=== PATIENT | male | born 1970 | race African-American/Black ===

== ENCOUNTER 2020-05-04 11:42 | Inpatient (IN) | payer MEDICAID, SELFPAY ==
[~2020-05-04] VITALS: Ht 167.6 cm; Wt 55.3 kg
[2020-05-04 11:50] VITALS: BP 212/123
[2020-05-04] MEDS ORDERED: ONDANSETRON 4 MG/2 ML VIAL IVP ONE (12:35)
[2020-05-04] MEDS ORDERED: LABETALOL 100 MG/20 ML VIAL IVP ONE (12:35)
[2020-05-04] MEDS ORDERED: fentaNYL citrate 0.05 MG/ML VIAL IVP ONE (12:35)
[2020-05-04 13:19] LABS: HEMOGLOBIN 13.6 g/dL (12.0-18.0); RED BLOOD CELL COUNT(AUTO) 4.85 MIL/uL (4.20-6.10); WHITE BLOOD COUNT (AUTO) 8.4 K/uL (4.8-10.8)
[2020-05-04 13:20] LABS: BASOPHILS % (AUTO) 0.6 % (0.0-2.0); EOSINOPHILS % (AUTO) 0.3 % (0.0-4.0); HEMATOCRIT 41.9 % (36-52); LYMPHOCYTES # (AUTO) 0.5 K/uL (2.0-11.5); LYMPHOCYTES % (AUTO) 3.2 % (20.5-51.1); MEAN CORPUSCULAR HEMOGLOBIN 28 pg (27-31); MEAN CORPUSCULAR HGB CONC 32 g/dL (33-37); MEAN CORPUSCULAR VOLUME 86.5 fL (80-94); MONOCYTES # (AUTO) 0.1 K/uL (0.8-1.0); MONOCYTES % (AUTO) 1.6 % (1.7-9.3); NEUTROPHILS # (AUTO) 7.6 K/uL (1.8-7.7); NEUTROPHILS % (AUTO) 91.3 % (42.2-75.2); PLATELET COUNT (AUTO) 228 K/uL (140-450); RED CELL DISTRIBUTION WIDTH 14.7 % (11.6-13.7)
[2020-05-04 13:21] LABS: BASOPHILS # (AUTO) 0.1 K/uL (0.00-0.22)
[2020-05-04 13:39] LABS: ANION GAP 15.8 (8-16); CARBON DIOXIDE 29.4 mmol/L (21-32); POTASSIUM 3.2 mmol/L (3.5-5.1); PROTHROMBIN TIME 10.1 secs (10.8-13.4); TOTAL BILIRUBIN 0.5 mg/dL (0.0-1.0)
[2020-05-04 15:50] LABS: CREATININE 7.4 mg/dL (0.6-1.3)
[2020-05-04 15:52] LABS: ALBUMIN 2.9 g/dL (3.4-5.0)
[2020-05-04] MEDS ORDERED: HYDROcodone/APAP 5/325 MG 1 TAB TAB PO ONE (16:25)
[2020-05-04] MEDS ORDERED: ASPIRIN 81 MG TAB.CHEW PO SCH (16:45)
[2020-05-04] MEDS ORDERED: ASPIRIN 81 MG TAB.CHEW PO ONE (16:45)
[2020-05-04] MEDS ORDERED: GABA400C PO (22:04)
[2020-05-04 22:50] VITALS: BP 174/90
[2020-05-05] VITALS: BP 152/94
[2020-05-05] MEDS ORDERED: DEXTROSE 50% 50 ML SYR IVP PRN (00:05)
[2020-05-05] MEDS ORDERED: ACETAMINOPHEN 325 MG TAB PO PRN (00:05)
[2020-05-05] MEDS ORDERED: POTASSIUM CHLORIDE 10 MEQ TABER PO PRN (00:05)
[2020-05-05] MEDS ORDERED: NACL 0.9% 1,000 ML IV SCH (00:05)
[2020-05-05] MEDS ORDERED: DOCUSATE SODIUM 100 MG GELCAP PO PRN (00:05)
[2020-05-05] MEDS ORDERED: NITROGLYCERIN 0.4 MG TAB SL PRN (00:05)
[2020-05-05] MEDS: ONDANSETRON 4 MG/2 ML VIAL IM/IVP PRN ×2 (00:40→16:32)
[2020-05-05 01:04] LABS: CHOL/HDL RATIO 7.7 (1-4.5); FREE T4 (FREE THYROXINE) 1.27 ng/dL (0.76-1.46); MAGNESIUM 2.4 mg/dL (1.8-2.4); PHOSPHORUS 6.7 mg/dL (2.5-4.9); THYROID STIMULATING HORMONE 1.36 uIU/mL (0.34-3.74)
[2020-05-05] MEDS ORDERED: MORPHINE SULFATE 4 MG/ML SYR IVP ONE (01:10)
[2020-05-05] MEDS ORDERED: MORPHINE SULFATE 4 MG/ML SYR ONE (02:39)
[2020-05-05 04:00] VITALS: BP 191/104
[2020-05-05] MEDS: CLONIDINE HYDROCHLORIDE 0.1 MG TAB PO PRN ×2 (04:47→16:39)
[2020-05-05] MEDS: BLOOD GLUCOSE MONITORING 1 DEV DEV FS SCH ×4 (06:25→20:06)
[2020-05-05] MEDS: INSULIN LISPRO SLIDING SCALE 100 UNITS/ML VIAL SUBQ PRN (06:27)
[2020-05-05 08:00] VITALS: BP 160/92
[2020-05-05] MEDS: HYDROcodone/APAP 7.5/325 MG 1 TAB PO PRN ×2 (10:49→16:32)
[2020-05-05 12:00] VITALS: BP 132/86
[2020-05-05 16:00] VITALS: BP 165/95
[2020-05-06 04:00] VITALS: BP 190/103
[2020-05-06] MEDS: CLONIDINE HYDROCHLORIDE 0.1 MG TAB PO PRN (05:51)
[2020-05-06] MEDS: ONDANSETRON 4 MG/2 ML VIAL IM/IVP PRN (06:00)
[2020-05-06] MEDS: BLOOD GLUCOSE MONITORING 1 DEV DEV FS SCH ×4 (06:06→20:38)
[2020-05-06 07:04] LABS: BASOPHILS # (AUTO) 0.1 K/uL (0.00-0.22); EOSINOPHILS % (AUTO) 0.2 % (0.0-4.0); HEMATOCRIT 39.2 % (36-52); HEMOGLOBIN 12.7 g/dL (12.0-18.0); LYMPHOCYTES # (AUTO) 1.4 K/uL (2.0-11.5); MEAN CORPUSCULAR HEMOGLOBIN 28 pg (27-31); MEAN CORPUSCULAR HGB CONC 32 g/dL (33-37); MEAN CORPUSCULAR VOLUME 86.8 fL (80-94); MONOCYTES # (AUTO) 0.4 K/uL (0.8-1.0); MONOCYTES % (AUTO) 7.2 % (1.7-9.3); NEUTROPHILS # (AUTO) 4.3 K/uL (1.8-7.7); NEUTROPHILS % (AUTO) 69.6 % (42.2-75.2); PLATELET COUNT (AUTO) 222 K/uL (140-450); RED BLOOD CELL COUNT(AUTO) 4.52 MIL/uL (4.20-6.10); RED CELL DISTRIBUTION WIDTH 14.4 % (11.6-13.7); WHITE BLOOD COUNT (AUTO) 6.2 K/uL (4.8-10.8)
[2020-05-06 07:25] LABS: ANION GAP 12.7 (8-16); CARBON DIOXIDE 29.5 mmol/L (21-32); POTASSIUM 3.2 mmol/L (3.5-5.1)
[2020-05-06 07:51] LABS: MAGNESIUM 2.1 mg/dL (1.8-2.4); PHOSPHORUS 5.3 mg/dL (2.5-4.9)
[2020-05-06 08:00] VITALS: BP 165/97
[2020-05-06 08:35] LABS: T4 (THYROXINE) 8.2 ug/dL (4.5-12.0)
[2020-05-06] MEDS ORDERED: METOPROLOL 25 MG TAB PO SCH (09:00)
[2020-05-06 09:29] LABS: CREATININE 6.3 mg/dL (0.6-1.3)
[2020-05-06] MEDS: ATORVASTATIN 20 MG TAB PO SCH (10:30)
[2020-05-06] MEDS: hydrALAZINE 10 MG TAB PO SCH ×3 (10:30→16:51)
[2020-05-06] MEDS: HYDROcodone/APAP 7.5/325 MG 1 TAB PO PRN (10:49)
[2020-05-06 12:00] VITALS: BP 137/83
[2020-05-06] MEDS ORDERED: LOPERAMIDE 2 MG CAP PO PRN (15:40)
[2020-05-06 16:00] VITALS: BP 152/88
[2020-05-06] MEDS: INSULIN LISPRO SLIDING SCALE 100 UNITS/ML VIAL SUBQ PRN (16:46)
[2020-05-06 20:00] VITALS: BP 147/80
[2020-05-06] MEDS: METOPROLOL 25 MG TAB PO SCH (20:41)
[2020-05-06] MEDS ORDERED: GABAPENTIN 100 MG CAP PO SCH (21:00)
[2020-05-07] VITALS: BP 156/83
[2020-05-07] MEDS: ONDANSETRON 4 MG/2 ML VIAL IM/IVP PRN (00:07)
[2020-05-07] MEDS: BLOOD GLUCOSE MONITORING 1 DEV DEV FS SCH ×4 (06:34→21:53)
[2020-05-07] MEDS: INSULIN LISPRO SLIDING SCALE 100 UNITS/ML VIAL SUBQ PRN ×3 (06:34→21:59)
[2020-05-07 06:58] LABS: BASOPHILS # (AUTO) 0.1 K/uL (0.00-0.22); BASOPHILS % (AUTO) 0.6 % (0.0-2.0); EOSINOPHILS # (AUTO) 0.1 K/uL (0-0.4); EOSINOPHILS % (AUTO) 1.6 % (0.0-4.0); HEMATOCRIT 35.7 % (36-52); HEMOGLOBIN 11.6 g/dL (12.0-18.0); LYMPHOCYTES # (AUTO) 1.4 K/uL (2.0-11.5); LYMPHOCYTES % (AUTO) 17.6 % (20.5-51.1); MEAN CORPUSCULAR HEMOGLOBIN 28 pg (27-31); MEAN CORPUSCULAR HGB CONC 32 g/dL (33-37); MEAN CORPUSCULAR VOLUME 86.3 fL (80-94); MONOCYTES # (AUTO) 0.8 K/uL (0.8-1.0); MONOCYTES % (AUTO) 9.9 % (1.7-9.3); NEUTROPHILS # (AUTO) 5.7 K/uL (1.8-7.7); NEUTROPHILS % (AUTO) 70.3 % (42.2-75.2); PLATELET COUNT (AUTO) 207 K/uL (140-450); RED BLOOD CELL COUNT(AUTO) 4.13 MIL/uL (4.20-6.10); RED CELL DISTRIBUTION WIDTH 14.2 % (11.6-13.7); WHITE BLOOD COUNT (AUTO) 8.1 K/uL (4.8-10.8)
[2020-05-07 07:07] LABS: ANION GAP 9.2 (8-16); CARBON DIOXIDE 29.8 mmol/L (21-32)
[2020-05-07 07:12] LABS: MAGNESIUM 2.1 mg/dL (1.8-2.4); PHOSPHORUS 4.2 mg/dL (2.5-4.9)
[2020-05-07 08:00] VITALS: BP 149/85
[2020-05-07 08:33] LABS: CREATININE 7.4 mg/dL (0.6-1.3)
[2020-05-07] MEDS: ATORVASTATIN 20 MG TAB PO SCH (10:09)
[2020-05-07] MEDS: amLODIPine 5 MG TAB PO SCH (10:10)
[2020-05-07] MEDS: GABAPENTIN 300 MG CAP PO SCH (10:10)
[2020-05-07] MEDS: METOPROLOL 25 MG TAB PO SCH ×2 (10:10→21:52)
[2020-05-07] MEDS: HYDROcodone/APAP 7.5/325 MG 1 TAB PO PRN (10:11)
[2020-05-07] MEDS: hydrALAZINE 10 MG TAB PO SCH ×3 (10:14→17:00)
[2020-05-07] MEDS ORDERED: ATOR20TA PO (10:51)
[2020-05-07] MEDS ORDERED: METO25TA PO (10:51)
[2020-05-07] MEDS ORDERED: AMLO10TA PO (10:51)
[2020-05-07] MEDS ORDERED: APR10 PO (10:51)
[2020-05-07] MEDS ORDERED: GABA400C PO (10:51)
[2020-05-07 12:00] VITALS: BP 133/75
[2020-05-07 16:00] VITALS: BP 113/67
[2020-05-07 16:10] VITALS: BP 133/75
[2020-05-07 20:00] VITALS: BP 157/87
[2020-05-08] VITALS: BP 141/82
[2020-05-08 04:00] VITALS: BP 138/78
[2020-05-08] MEDS: BLOOD GLUCOSE MONITORING 1 DEV DEV FS SCH (06:08)
[2020-05-08] MEDS: INSULIN LISPRO SLIDING SCALE 100 UNITS/ML VIAL SUBQ PRN (06:10)
[2020-05-08 08:00] VITALS: BP 132/81
[2020-05-08] MEDS: ATORVASTATIN 20 MG TAB PO SCH (10:11)
[2020-05-08] MEDS: hydrALAZINE 10 MG TAB PO SCH (10:11)
[2020-05-08] MEDS: METOPROLOL 25 MG TAB PO SCH (10:12)
[2020-05-08] MEDS: GABAPENTIN 300 MG CAP PO SCH (10:12)
[2020-05-08] MEDS: amLODIPine 5 MG TAB PO SCH (10:12)
== END 2020-05-08 12:04 | disposition home or self-care (01) | DRG 470 ==
LOC: MED 11:42 → MTU 17:59
PROVIDERS: ADMIT Emergency Medicine; ATTEND Emergency Medicine
PROC: 5A1D70Z Performance of Urinary Filtration, Intermittent, Less than 6 Hours Per Day (ICD-10-PCS; 2020-05-05)
PROC: 5A1D70Z Performance of Urinary Filtration, Intermittent, Less than 6 Hours Per Day (ICD-10-PCS; principal; 2020-05-06)
DX: I12.0 Hypertensive chronic kidney disease with stage 5 chronic kidney disease or end stage renal disease (principal); R07.9 Chest pain, unspecified; N17.0 Acute kidney failure with tubular necrosis; E10.22 Type 1 diabetes mellitus with diabetic chronic kidney disease; N18.6 End stage renal disease; I16.0 Hypertensive urgency; N25.81 Secondary hyperparathyroidism of renal origin; E10.42 Type 1 diabetes mellitus with diabetic polyneuropathy; Z20.828 Contact with and (suspected) exposure to other viral communicable diseases; E87.6 Hypokalemia; Z99.2 Dependence on renal dialysis; Z88.2 Allergy status to sulfonamides; Z88.5 Allergy status to narcotic agent; Z82.49 Family history of ischemic heart disease and other diseases of the circulatory system; Z91.15 Patient's noncompliance with renal dialysis
CPT/HCPCS: 36415; 74022; 80048; 80053; 82948; 83036; 83690; 83735; 83880; 84100; 84436; 84439; 84443; 84479; 84484; 85025; 85610; 85730; 87081; 93005; 96374; 96375; 97110; 97112; 97116; 97161-GP; 97530; 99285; J1644; J2270; J2405; J3010; J3490

== ENCOUNTER 2020-07-19 22:52 | Emergency (ER) | payer MEDICAID, SELFPAY ==
[~2020-07-19] VITALS: Ht 167.6 cm; Wt 68.0 kg
[~2020-07-19 22:52] MED LIST: AMLO10TA PO; APR10 PO; ATOR20TA PO; GABA400C PO; METO25TA PO
[2020-07-19 22:56] VITALS: BP 179/99
[2020-07-19] MEDS ORDERED: HYDROcodone/APAP 5/325 MG 1 TAB TAB PO ONE (23:40)
[2020-07-20 00:04] LABS: BASOPHILS # (AUTO) 0.1 K/uL (0.00-0.22); BASOPHILS % (AUTO) 1.4 % (0.0-2.0); EOSINOPHILS # (AUTO) 0.4 K/uL (0-0.4); HEMATOCRIT 34.8 % (36-52); HEMOGLOBIN 11.3 g/dL (12.0-18.0); LYMPHOCYTES # (AUTO) 1.8 K/uL (2.0-11.5); LYMPHOCYTES % (AUTO) 25.7 % (20.5-51.1); MEAN CORPUSCULAR HEMOGLOBIN 29 pg (27-31); MEAN CORPUSCULAR HGB CONC 33 g/dL (33-37); MEAN CORPUSCULAR VOLUME 89.1 fL (80-94); MONOCYTES # (AUTO) 0.6 K/uL (0.8-1.0); MONOCYTES % (AUTO) 7.8 % (1.7-9.3); NEUTROPHILS # (AUTO) 4.3 K/uL (1.8-7.7); NEUTROPHILS % (AUTO) 60.1 % (42.2-75.2); PLATELET COUNT (AUTO) 219 K/uL (140-450); RED BLOOD CELL COUNT(AUTO) 3.91 MIL/uL (4.20-6.10); WHITE BLOOD COUNT (AUTO) 7.1 K/uL (4.8-10.8)
[2020-07-20 00:33] LABS: ALBUMIN 3.2 g/dL (3.4-5.0); ANION GAP 17.8 (8-16); CARBON DIOXIDE 24.9 mmol/L (21-32); TOTAL BILIRUBIN 0.2 mg/dL (0.0-1.0)
[2020-07-20 00:36] LABS: CREATININE 9.3 mg/dL (0.6-1.3)
[2020-07-20 00:37] LABS: POTASSIUM 5.7 mmol/L (3.5-5.1)
[2020-07-20] MEDS ORDERED: HYDR-5080 PO (02:23)
[2020-07-20] MEDS ORDERED: IBUP-2213 PO (02:24)
[2020-07-20 02:45] VITALS: BP 143/78
== END 2020-07-20 02:45 | disposition home or self-care (01) ==
LOC: MED 22:52
DX: M25.562 Pain in left knee (principal); E11.9 Type 2 diabetes mellitus without complications; I10 Essential (primary) hypertension; Z87.448 Personal history of other diseases of urinary system; Z88.2 Allergy status to sulfonamides; Z88.6 Allergy status to analgesic agent; Z79.899 Other long term (current) drug therapy; W18.39XA Other fall on same level, initial encounter; Y93.89 Activity, other specified; Y92.89 Other specified places as the place of occurrence of the external cause; Y99.8 Other external cause status
CPT/HCPCS: 36415; 73562; 80053; 85025; 99284